=== PATIENT | female | born 1985 | race African-American/Black ===

== ENCOUNTER 2016-07-13 20:47 | Emergency (ER) | payer MEDICAID ==
[~2016-07-13] VITALS: Ht 157.5 cm; Wt 73.0 kg
[2016-07-13 21:20] VITALS: BP 119/62
== END 2016-07-13 23:41 | disposition left against medical advice (07) ==
LOC: ER 20:47
DX: Z53.21 Procedure and treatment not carried out due to patient leaving prior to being seen by health care provider (principal)